=== PATIENT | female | born 1985 | race Caucasian/White ===

== ENCOUNTER 2018-12-17 14:31 | Emergency (ER) | payer SELFPAY ==
[~2018-12-17] VITALS: Ht 167.6 cm; Wt 52.2 kg
[~2018-12-17 14:31] MED LIST: LORA-476 PO
[2018-12-17 14:40] VITALS: BP 138/94
--- NOTE | 2018-12-17 14:43 | NUR ---
PT TRIAGED, SENT BACK TO LOBBY AWAITING BED
--- NOTE | 2018-12-17 15:23 | NUR ---
PATIENT AMBULATED TO ER CHAIR D
--- NOTE | 2018-12-17 15:31 | NUR ---
PT BIB AMBULANCE W/ C/O ANXIETY ATTACK AT 0700 TODAY. STATES SHE MAY BE SO NOT TAKING ANTI ANXIETY MEDS. LMP 2 MONTHS AGO HAS NOT TAKEN TEST. C/O NUMBNESS IN TOES STARTING TODAY. PT UNABLE TO SLEEP AT NIGHT R/T HEADACHE X2 WEEKS. PAIN 10/10 IN HEAD. PT SITTING IN CHAIR CALM. VSS. MEDHX: ANXIETY ALLERGIES: DENIES
--- NOTE | 2018-12-17 16:53 | NUR ---
PT NOT FOUND IN CHAIR, RESTROOMS OR ER LOBBY. PT LWBS AT THIS TIME
== END 2018-12-17 16:53 | disposition left against medical advice (07) ==
LOC: MED 14:31
DX: F41.9 Anxiety disorder, unspecified (principal); Z53.21 Procedure and treatment not carried out due to patient leaving prior to being seen by health care provider
CPT/HCPCS: 81025

== ENCOUNTER 2018-12-29 03:10 | Emergency (ER) | payer SELFPAY ==
[~2018-12-29] VITALS: Ht 165.1 cm; Wt 52.2 kg
--- NOTE | 2018-12-29 03:10 | NUR ---
PT SHELLEY BLS. TAKEN TO BED 8
--- NOTE | 2018-12-29 03:15 | NUR ---
33Y FEMALE BIBA FROM HOME FOR ANXIETY. PT STATES "IT FEELS LIKE MY HEART IS JUMPING OUT OF MY CHEST" C/O NAUSEA, CHEST PAIN 10/ AND SOB. ON PRESCRIBED ATIVAN BUT PT DOES NOT TAKE MED. PT ADMITS TO DRINKING A PINT OF VODKA, AAOX4, RR EVEN UNLABORED, GCS 15 EDMD MADE AWARE, WILL CONTINUE TO MONITOR CLOSELY, BED LOCKED IN LOWEST POSITION, SIDERAILS UPX2. PMH-- ANXIETY, HYPOGLYCEMIA, ALCOHOLISM
[2018-12-29 03:17] VITALS: BP 149/97
--- NOTE | 2018-12-29 03:27 | NUR ---
Dr. Walker examining patient.
[2018-12-29] MEDS ORDERED: KETOROLAC 30 MG/ML VIAL IVP ONE (03:35)
[2018-12-29] MEDS ORDERED: MULTIVITAMIN-12 10 ML, THIAMINE 100 MG, FOLIC ACID 1 MG, MAGNESIUM SULFATE 50% 2,000 MG... IV ONE ×5 (03:35)
[2018-12-29] MEDS ORDERED: LORazepam 2 MG/ML VIAL IVP ONE (03:35)
[2018-12-29] MEDS ORDERED: THIAMINE 200 MG/2 ML VIAL ONE (03:46)
[2018-12-29] MEDS ORDERED: FOLIC ACID 5 MG/ML SYR ONE (03:46)
[2018-12-29] MEDS ORDERED: MULTIVITAMIN-12 10 ML VIAL IV ONE (03:46)
[2018-12-29] MEDS ORDERED: MAG SULF 2000 MG/WATER PREMIX 50 ML IV ONE (03:54)
[2018-12-29 05:30] VITALS: BP 149/97
--- NOTE | 2018-12-29 05:30 | NUR ---
PT DISCHARGED WITH VSS, WRITTEN AND VERBAL AFTER CARE INSTRUCTIONS EXPLAINED AND PROVIDED FOR PT, VERBALIZED UNDERSTANDING, AMBULATORY WITH STEADY GAIT. ALL QUESTIONS ADDRESSED, ADVISED TO FOLLOW UP WITH PMD.
== END 2018-12-29 05:30 | disposition home or self-care (01) ==
LOC: MED 03:10
DX: F41.9 Anxiety disorder, unspecified (principal); R07.89 Other chest pain; F10.10 Alcohol abuse, uncomplicated; R03.0 Elevated blood-pressure reading, without diagnosis of hypertension
CPT/HCPCS: 84703; 93005; 96365; 96375; 99283; A9153; J1885; J2060; J3411; J3475; J3490

== ENCOUNTER 2019-02-13 12:31 | Emergency (ER) | payer MEDICAID ==
[~2019-02-13] VITALS: Ht 175.3 cm; Wt 49.4 kg
[2019-02-13 12:38] VITALS: BP 129/82
--- NOTE | 2019-02-13 12:44 | NUR ---
PT ABLE TO AMBULATE FROM STRETCHER TO CHAIR B, VS WNL
--- NOTE | 2019-02-13 12:50 | NUR ---
33 Y/O FEMAL BIBA C/O CONTINUOUS EPIGASTRIC PAIN 11/15 WIHT NAUSEA. PT ADMITS TO DRINKING HALF A PINT OF VODKA. PATIENT STATES, "I HAVEN'T BEEN ABLE TO EAT BECAUSE I HAVE BEEN THROWING UP; I''VE ONLY HAD A FEW BITES OF ADAME SOUP." ERMD MADE AWARE OF STATUS. SIDE RAILSX1. UNCLE AT BEDSIDE. WILL CONTINUE TO MONITOR. PMH- ALCOHOL ABUSE RX: NONE NKDA
--- NOTE | 2019-02-13 12:50 | NUR ---
Pt moved to bed 5.
[2019-02-13] MEDS ORDERED: LORazepam 2 MG/ML VIAL IVP ONE (14:20)
[2019-02-13] MEDS ORDERED: NACL 0.9% 1,000 ML IV ONE (14:20)
[2019-02-13 16:02] VITALS: BP 120/82
--- NOTE | 2019-02-13 16:02 | NUR ---
Patient discharged with v/s stable. Written and verbal after care instructions given and explained. Patient alert, oriented and verbalized understanding of instructions. Ambulatory with steady gait. All questions addressed prior to discharge. ID band removed. Patient advised to follow up with PMD and pt states she does not have one. Pt unsure if she has insurance. Verified with [facility] and pt is self pay. Pt sent to ER lobby to speak with clerk telegraph service about qualifying for PE. Rx of Ativan 1mg given. Patient educated on indication of medication including possible reaction and side effects. Opportunity to ask questions provided and answered.
== END 2019-02-13 16:02 | disposition home or self-care (01) ==
LOC: MED 12:31
DX: F41.9 Anxiety disorder, unspecified (principal); F10.10 Alcohol abuse, uncomplicated; R11.10 Vomiting, unspecified; Z79.899 Other long term (current) drug therapy; Z86.39 Personal history of other endocrine, nutritional and metabolic disease; Z87.448 Personal history of other diseases of urinary system
CPT/HCPCS: 96361; 96374; 99284; J2060; J7030

== ENCOUNTER 2019-03-07 08:20 | Emergency (ER) | payer MEDICAID ==
[~2019-03-07] VITALS: Ht 167.6 cm; Wt 52.2 kg
[2019-03-07 08:23] VITALS: BP 136/101
--- NOTE | 2019-03-07 08:27 | NUR ---
PT AMBULATED TO ER BED 04
--- NOTE | 2019-03-07 08:29 | NUR ---
PATIENT PRESENTS TO ED WITH C/O ANXIETY X 2 WEEKS. STATED CHEST PAIN TODAY, ADMITS TO DAILY ETOH USE. + NAUSEA/BLOATING. LUNGS CLEAR BL; HR EVEN AND REGULAR; PATIENT STATES CHEST PAIN OF 9/10 AT THIS TIME; VSS; PATIENT POSITIONED FOR COMFORT; HOB ELEVATED; BEDRAILS UP X2; BED DOWN. ER MD MADE AWARE OF PT STATUS.
--- NOTE | 2019-03-07 08:30 | NUR ---
Patient being evaluated by DR. FOLEY at bedside.
[2019-03-07] MEDS ORDERED: LORazepam 2 MG/ML VIAL IM ONE (08:35)
--- NOTE | 2019-03-07 09:30 | NUR ---
PATIENT STATED FEELING BETTER AFTER MEDICATED, BUT STILL HAVE CHEST DISCOMFORT AND ABDOMINAL PAIN, DR. FOLEY MADE AWARE.
--- NOTE | 2019-03-07 09:45 | NUR ---
DR. FOLEY EDUCATED PATIENT ABOUT ALCOHOLISM SYMPTOM RALATED TO CHEST DISCOMFORT AND ABDOMINAL PAIN, AND ALCOHOL DETOX PROGRAM. PATIENT VERBALIZED UNDERSTANDING IT.
[2019-03-07 10:03] VITALS: BP 122/87
--- NOTE | 2019-03-07 10:03 | NUR ---
Patient'S V/S STABLE, DENIES PAIN, Written and verbal after care instructions given and explained BY DR. FOLEY. Rx of LIBRIUM given. Patient educated on indication of medication including possible reaction and side effects. Opportunity to ask questions provided and answered BY DR. FOLEY. ID band removed. Patient advised to follow up with PMD.
== END 2019-03-07 10:03 | disposition home or self-care (01) ==
LOC: MED 08:20
DX: F10.239 Alcohol dependence with withdrawal, unspecified (principal); Y90.9 Presence of alcohol in blood, level not specified; E07.9 Disorder of thyroid, unspecified; F41.9 Anxiety disorder, unspecified; Z79.899 Other long term (current) drug therapy; Z87.448 Personal history of other diseases of urinary system
CPT/HCPCS: 96372; 99283; J2060; 99284

== ENCOUNTER 2019-06-15 15:56 | Emergency (ER) | payer SELFPAY ==
[~2019-06-15] VITALS: Ht 162.6 cm; Wt 50.0 kg
--- NOTE | 2019-06-15 15:56 | NUR ---
PT SHELLEY MCCRACKEN TO THE LOBBY
[2019-06-15 16:06] VITALS: BP 103/74
--- NOTE | 2019-06-15 17:11 | NUR ---
called PT name in lobby and parking lot, no response
--- NOTE | 2019-06-15 17:21 | NUR ---
Called PT name in lobby, no answer
--- NOTE | 2019-06-15 17:34 | NUR ---
PATIENT LEFT WITHOUT BEING SEEN BY DR. Taveras. NO FURTHER CARE PROVIDED FOR PATIENT.
== END 2019-06-15 17:34 | disposition left against medical advice (07) ==
LOC: MED 15:56
DX: F41.9 Anxiety disorder, unspecified (principal); Z53.21 Procedure and treatment not carried out due to patient leaving prior to being seen by health care provider

== ENCOUNTER 2019-06-17 22:50 | Emergency (ER) | payer SELFPAY ==
[~2019-06-17] VITALS: Ht 294.6 cm; Wt 49.9 kg
[2019-06-17 22:59] VITALS: BP 118/74
[2019-06-18] MEDS ORDERED: LORazepam 1 MG TAB PO ONE (00:30)
[2019-06-18 01:38] VITALS: BP 119/79
== END 2019-06-18 01:38 | disposition home or self-care (01) ==
LOC: MED 22:50
DX: F41.9 Anxiety disorder, unspecified (principal); E16.2 Hypoglycemia, unspecified; E07.9 Disorder of thyroid, unspecified; Z79.899 Other long term (current) drug therapy; Z87.448 Personal history of other diseases of urinary system
CPT/HCPCS: 71045; 82948; 93005; 99283; Q0092; 99284

== ENCOUNTER 2019-08-12 00:50 | Emergency (ER) | payer SELFPAY ==
[~2019-08-12] VITALS: Ht 167.6 cm; Wt 51.7 kg
--- NOTE | 2019-08-12 00:50 | NUR ---
PT TRANSPORTED TO BED 7 VIA [facility].
[2019-08-12 00:55] VITALS: BP 143/81
--- NOTE | 2019-08-12 01:01 | NUR ---
AT BEDSIDE EXAMINING PT
--- NOTE | 2019-08-12 01:10 | NUR ---
34 YEAR OLD FEMALE BIBA FOR LEFT EYE PAIN. PATIENT STATES THAT SHE FELL OFF OF BED 2 DAYS AGO ON SAME SPOT (LEFT EYE AREA) THAT SHE HAD FELL ONTO PREVIOUSLY A COUPLE OF WEEKS AGO. PATIENT WITH LEFT EYELID SWOLLEN, PURPLE, AND WITH DIFFICULTY OPENING EYE. PATIENT DENIES ABUSE. PATIENT AOX4, BREATHING EVEN AND UNLABORED, SKIN WARM AND DRY. BED IN LOWEST POSITION, LOCKED, BED RAIL UPX1. ERMD AT BEDSIDE OF PATIENT. PMH - DENIES ALLERGIES - NKA
--- NOTE | 2019-08-12 01:44 | NUR ---
PATIENT BACK FROM CT
--- NOTE | 2019-08-12 01:44 | NUR ---
PATIENT ALERT AND AWAKE, BREATHING EVEN AND UNLABORED
[2019-08-12 02:42] VITALS: BP 114/84
--- NOTE | 2019-08-12 02:42 | NUR ---
Patient discharged with v/s stable. Written and verbal after care instructions about facial or scalp contusions given and explained. Patient alert, oriented and verbalized understanding of instructions. Ambulatory with steady gait. All questions addressed prior to discharge. ID band removed. Patient advised to follow up with PMD. Rx of ativan given. Patient educated on indication of medication including possible reaction and side effects. Opportunity to ask questions provided and answered.
== END 2019-08-12 02:42 | disposition home or self-care (01) ==
LOC: MED 00:50
DX: S00.83XA Contusion of other part of head, initial encounter (principal); H02.846 Edema of left eye, unspecified eyelid; F41.9 Anxiety disorder, unspecified; E07.9 Disorder of thyroid, unspecified; Z79.899 Other long term (current) drug therapy; W06.XXXA Fall from bed, initial encounter; Y93.89 Activity, other specified; Y92.89 Other specified places as the place of occurrence of the external cause; Y99.8 Other external cause status
CPT/HCPCS: 70450; 99284

== ENCOUNTER 2019-08-13 20:43 | Emergency (ER) | payer SELFPAY ==
[~2019-08-13] VITALS: Ht 170.2 cm; Wt 54.4 kg
--- NOTE | 2019-08-13 20:43 | NUR ---
PT SHELLEY MCCRACKEN. TAKEN TO BED 12
[2019-08-13 20:45] VITALS: BP 111/77
--- NOTE | 2019-08-13 20:45 | NUR ---
PT NEGATIVE FOR COVID SCREEN PT WEARING MASK. TRIAGE NURSE WEARING PPE.
--- NOTE | 2019-08-13 21:20 | NUR ---
PT MEDICATED WITH TORADOL IVP AND INFUSING NS BOLUS. TOLERATED WELL.
--- NOTE | 2019-08-13 21:26 | NUR ---
PT AMBULATED TO RESTROOM WITH STEADY GAIT.
[2019-08-13] MEDS: NACL 0.9% 1,000 ML IV ONE (21:32)
[2019-08-13] MEDS: KETOROLAC 30 MG/ML VIAL IVP ONE (21:33)
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
--- NOTE | 2019-08-13 21:38 | NUR ---
34F PT STATES SHE FELL FROM BED X 2 DAYS AGO AND HIT HEAD. PT STATES SINCE THEN SHE HAS HAD A VALDEZ WITH 10/10 PAIN. PT STATES PAIN RADIATES TO NECK. PT STATES SHE DRANK 1/2 PINT OF VODKA TODAY AND HAS BEEN FEELING DIZZY. PT NOTED WITH BRUISED L EYE. RX: NAPROSYN PMHX: DENIES NEGATIVE COVID SCREEN.
[2019-08-13 21:40] LABS: BASOPHILS # (AUTO) 0.1 K/uL (0.00-0.22); BASOPHILS % (AUTO) 0.9 % (0.0-2.0); EOSINOPHILS % (AUTO) 0.4 % (0.0-4.0); HEMATOCRIT 33.7 % (36-48); HEMOGLOBIN 11.4 g/dL (12.0-16.0); LYMPHOCYTES % (AUTO) 25.9 % (20.5-51.1); MEAN CORPUSCULAR HEMOGLOBIN 31 pg (27-31); MEAN CORPUSCULAR HGB CONC 34 g/dL (33-37); MEAN CORPUSCULAR VOLUME 92.5 fL (80-94); MONOCYTES # (AUTO) 0.6 K/uL (0.8-1.0); MONOCYTES % (AUTO) 7.4 % (1.7-9.3); NEUTROPHILS % (AUTO) 65.4 % (42.2-75.2); PLATELET COUNT (AUTO) 108 K/uL (140-450); RED BLOOD CELL COUNT(AUTO) 3.64 MIL/uL (4.20-5.40); RED CELL DISTRIBUTION WIDTH 13.2 % (11.6-13.7); WHITE BLOOD COUNT (AUTO) 7.6 K/uL (4.8-10.8)
[2019-08-13 21:56] LABS: BARBITURATE, URINE NEGATIVE ng/ml (NEG <=200); BENZODIAZEPINE, URINE POSITIVE ng/mL (NEG <=200); CANNABINOID, URINE NEGATIVE ng/mL (NEG <=50); COCAINE, URINE NEGATIVE ng/mL (NEG <=300); OPIATE, URINE NEGATIVE ng/mL (NEG <=2000); PHENCYCLIDINE SCREEN,URINE NEGATIVE ng/mL (NEG <=25)
[2019-08-13 22:26] LABS: ALBUMIN 4.2 g/dL (3.4-5.0); ANION GAP 18.8 (8-16); ASPARTATE AMINOTRANSFERASE 113 U/L (15-37); CARBON DIOXIDE 26.6 mmol/L (21-32); CHLORIDE 99 mmol/L (98-107); CREATININE 0.7 mg/dL (0.6-1.3); GFR ARICAN-AMERICAN 122 mL/min (>90); GLUCOSE 106 mg/dL (74-106); POTASSIUM 3.4 mmol/L (3.5-5.1); SODIUM SERUM 141 mmol/L (136-145); TOTAL BILIRUBIN 0.8 mg/dL (0.0-1.0); UREA NITROGEN, BLOOD 12 mg/dL (7-18)
[2019-08-13 22:30] LABS: ACETAMINOPHEN < 0.5 ug/ml (10-30); SALICYLATE < 2.8 mg/dL (2.8-20.0)
--- NOTE | 2019-08-13 22:59 | NUR ---
PT REPORTS DECREASED PAIN FROM 7/10 TO 3/10 AND TOLERABLE. NO FURTHER NEEDS AT THIS TIME. BED LOWEST AND LOCKED, RAILS X2. IV SITE PATENT
--- NOTE | 2019-08-14 00:34 | NUR ---
PT REPORTS OF INCREASING PAIN ON LEFT PERIORBITAL REGION. DR. MCKENZIE NOTIFIED.
[2019-08-14 01:28] VITALS: BP 115/78
--- NOTE | 2019-08-14 01:28 | NUR ---
Patient discharged with v/s stable. Written and verbal after care instructions given and explained. Patient verbalized understanding. Ambulatory with steady gait. All questions addressed prior to discharge. Advised to follow up with PMD.
== END 2019-08-14 01:28 | disposition home or self-care (01) ==
LOC: MED 20:43
DX: R51 Headache (principal); F10.120 Alcohol abuse with intoxication, uncomplicated; E07.9 Disorder of thyroid, unspecified; Z87.448 Personal history of other diseases of urinary system; Z79.899 Other long term (current) drug therapy; W06.XXXA Fall from bed, initial encounter; Y93.89 Activity, other specified; Y92.89 Other specified places as the place of occurrence of the external cause; Y99.8 Other external cause status; Y90.9 Presence of alcohol in blood, level not specified
CPT/HCPCS: 36415; 80053; 80305; 84703; 85025; 96361; 96374; 99284; G0480; G0482; J1885; J7030

== ENCOUNTER 2019-09-06 18:58 | Emergency (ER) | payer SELFPAY ==
[~2019-09-06] VITALS: Ht 167.6 cm; Wt 54.4 kg
[2019-09-06 18:59] VITALS: BP 120/80
--- NOTE | 2019-09-06 19:03 | NUR ---
KAROLINA ROSA ALS TO ER BED 07
--- NOTE | 2019-09-06 19:12 | NUR ---
Dr. Chan examining patient.
[2019-09-06] MEDS ORDERED: diphenhydrAMINE 50 MG/ML VIAL IVP ONE (19:15)
[2019-09-06] MEDS ORDERED: MULTIVITAMIN-12 10 ML, THIAMINE 100 MG, MAGNESIUM SULFATE 50% 2,000 MG, FOLIC ACID 1 MG... IV ONE ×5 (19:15)
--- NOTE | 2019-09-06 19:16 | NUR ---
34 Y/O FEMALE PRESENTS TO ER WITH C/O GENERALIZED WEAKNESS, AND LEFT LEG PAIN 10/. "I WAS LOOKING FOR MY PHONE, AND MY LEG GOT STUCK IN BETWEEN THE BED" DENIES NAUSEA, VOMITING, DIARRHEA, COUGH. NO DEFORMITY, REDNESS, INFLAMMATION, OR DISCOLORATION NOTED IN LEFT LEG. BILATERAL LOWER EXTREMITY PULSES PALPATED. STRONG, AND REGULAR. SIDE RAIL X1, BED IN LOW POSITION, WILL CONTINUE TO MONITOR. NKDA PMH: ANXIETY, ALCOHOL ABUSE, HYPOGLYCEMIA
--- NOTE | 2019-09-06 19:31 | NUR ---
LABS DRAWN AND SENT TO LAB.
[2019-09-06] MEDS ORDERED: MULTIVITAMIN-12 10 ML VIAL IV ONE (19:32)
[2019-09-06 19:34] LABS: BASOPHILS # (AUTO) 0.1 K/uL (0.00-0.22); BASOPHILS % (AUTO) 1.7 % (0.0-2.0); EOSINOPHILS % (AUTO) 0.2 % (0.0-4.0); HEMATOCRIT 32.9 % (36-48); HEMOGLOBIN 10.9 g/dL (12.0-16.0); LYMPHOCYTES # (AUTO) 1.5 K/uL (2.5-16.5); LYMPHOCYTES % (AUTO) 26.9 % (20.5-51.1); MEAN CORPUSCULAR HEMOGLOBIN 31 pg (27-31); MEAN CORPUSCULAR HGB CONC 33 g/dL (33-37); MEAN CORPUSCULAR VOLUME 92.4 fL (80-94); MONOCYTES # (AUTO) 0.5 K/uL (0.8-1.0); MONOCYTES % (AUTO) 8.3 % (1.7-9.3); NEUTROPHILS # (AUTO) 3.4 K/uL (1.8-7.7); NEUTROPHILS % (AUTO) 62.9 % (42.2-75.2); PLATELET COUNT (AUTO) 75 K/uL (140-450); RED BLOOD CELL COUNT(AUTO) 3.56 MIL/uL (4.20-5.40); RED CELL DISTRIBUTION WIDTH 14.5 % (11.6-13.7); WHITE BLOOD COUNT (AUTO) 5.5 K/uL (4.8-10.8)
[2019-09-06] MEDS ORDERED: MAG SULF 2000 MG/WATER PREMIX 50 ML IV ONE (19:38)
[2019-09-06] MEDS ORDERED: THIAMINE 200 MG/2 ML VIAL ONE (19:38)
[2019-09-06] MEDS ORDERED: FOLIC ACID 5 MG/ML SYR ONE ×2 (19:39→19:44)
[2019-09-06 19:48] LABS: ANION GAP 20.8 (8-16); CREATININE 0.7 mg/dL (0.6-1.3); POTASSIUM 3.8 mmol/L (3.5-5.1)
[2019-09-06 19:54] LABS: ALBUMIN 3.5 g/dL (3.4-5.0); TOTAL BILIRUBIN 0.9 mg/dL (0.0-1.0)
--- NOTE | 2019-09-06 20:31 | NUR ---
PT RESTING IN BED QUIETLY, EATING SANDWHICH AND APPLE JUICE. VSS, R/R EQUAL AND UNLABORED.
--- NOTE | 2019-09-06 21:34 | NUR ---
PT SLEEPING IN BED. VSS, R/R EQUAL AND UNLABORED.
--- NOTE | 2019-09-06 22:41 | NUR ---
PT SLEEPING, IN BED. VSS, R/R EQUAL AND UNLABORED.
--- NOTE | 2019-09-06 23:45 | NUR ---
Patient discharged with v/s stable. Written and verbal after care instructions given and explained. Patient alert, oriented and verbalized understanding of instructions. Ambulatory with steady gait. All questions addressed prior to discharge. ID band removed. Patient advised to follow up with PMD. Rx of LIBRIUM given. Patient educated on indication of medication including possible reaction and side effects. Opportunity to ask questions provided and answered.
--- NOTE | 2019-09-06 23:45 | NUR ---
PT D/C'D AND PICKED UP BY SHAHRZADFRIENJason LEW
[2019-09-06 23:48] VITALS: BP 120/80
== END 2019-09-06 23:45 | disposition home or self-care (01) ==
LOC: MED 18:58
DX: F10.10 Alcohol abuse, uncomplicated (principal); F41.9 Anxiety disorder, unspecified; E07.9 Disorder of thyroid, unspecified; Z79.899 Other long term (current) drug therapy; Y90.8 Blood alcohol level of 240 mg/100 ml or more
CPT/HCPCS: 36415; 80053; 85025; 96365; 96366; 96375; 99284; A9153; G0482; J1200; J3411; J3475; J3490

== ENCOUNTER 2019-10-09 08:42 | Inpatient (IN) | payer MEDICAID ==
[~2019-10-09] VITALS: Ht 154.9 cm; Wt 63.0 kg
--- NOTE | 2019-10-09 08:44 | NUR ---
BIBA TAKEN TO BED 7
[2019-10-09 08:47] VITALS: BP 113/81
--- NOTE | 2019-10-09 08:47 | NUR ---
34 Y/O F C/C DIZZINESS X 1 MONTH, BIBA FROM HOME. PER PT ON AND OFF, HAS BEEN PROGRESSIVELY GETTING WORSE. PER PT COMPLAINTS OF CHEST DISCOMFORT, SOB, AND FAINTING EVERY TIME SHE STANDS UP. PER EMS PT ORTHOSTATIC BLOOD PRESSURE WHEN STANDING UP. PT PRESENTS IN NO RESPIRATORY DISTRESS, EUPNIC, VSS. PT NKA. HX ANXIETY. RX ATIVAN. NO NVD. SIDE RAIL X1.
[2019-10-09] MEDS ORDERED: NACL 0.9% 1,000 ML IV ONE (09:50)
[2019-10-09] MEDS ORDERED: LORazepam 0.5 MG TAB PO ONE (09:50)
--- NOTE | 2019-10-09 10:04 | NUR ---
RAD AT BEDSIDE
[2019-10-09 10:11] LABS: MEAN CORPUSCULAR HEMOGLOBIN 32 pg (27-31); MEAN CORPUSCULAR HGB CONC 33 g/dL (33-37); MEAN CORPUSCULAR VOLUME 94.2 fL (80-94); PLATELET COUNT (AUTO) 199 K/uL (140-450); RED BLOOD CELL COUNT(AUTO) 2.87 MIL/uL (4.20-5.40); RED CELL DISTRIBUTION WIDTH 17.1 % (11.6-13.7); WHITE BLOOD COUNT (AUTO) 7.2 K/uL (4.8-10.8)
[2019-10-09] MEDS ORDERED: MAG SULF 2000 MG/WATER PREMIX 50 ML IV ONE (10:35)
[2019-10-09 10:38] LABS: ALBUMIN 2.7 g/dL (3.4-5.0); ANION GAP 17.4 (8-16); CARBON DIOXIDE 25.9 mmol/L (21-32); CREATININE 0.4 mg/dL (0.6-1.3); FREE T4 (FREE THYROXINE) 1.17 ng/dL (0.76-1.46); MAGNESIUM 1.4 mg/dL (1.8-2.4); POTASSIUM 3.3 mmol/L (3.5-5.1); THYROID STIMULATING HORMONE 2.32 uIU/mL (0.34-3.74); TOTAL BILIRUBIN 0.7 mg/dL (0.0-1.0)
[2019-10-09 10:59] LABS: EOSINOPHILS % (MANUAL) 1 % (0-4); LYMPHOCYTES % (MANUAL) 16 % (20-46); MONOCYTES % (MANUAL) 18 % (5-12)
[2019-10-09] MEDS ORDERED: NACL 0.9% 1,000 ML IV SCH (11:34)
[2019-10-09] MEDS ORDERED: ONDANSETRON 4 MG/2 ML VIAL IVP PRN (11:35)
[2019-10-09 12:13] LABS: PROTHROMBIN TIME 11.8 secs (10.8-13.4)
[2019-10-09 12:30] VITALS: BP 114/80
--- NOTE | 2019-10-09 12:30 | NUR ---
RECEIVED BEDSIDE REPORT FROM ER NURSEERIK, FOR CONTINUITY OF CARE. AAOX4, PATIENT SEEMS AGITATED AND IN DISTRESS. V/S TAKEN AND IS WNL. PATIENT COMPLAINS OF ABDOMINAL PAIN 10/15. WILL MEDICATE. PATIENT ON ROOM AIR WITH SAO2 AT 94%, RESPIRATIONS EVEN AND UNLABORED. IV SITE ON THE LEFT WRIST 20G, PATENT AND INFUSES WELL. SAFETY PRECAUTIONS IN PLACE. CALL LIGHT WITHIN REACH. PLAN OF CARE DISCUSSED AND PATIENT VERBALIZES UNDERSTANDING. WILL CONTINUE TO MONITOR.
--- NOTE | 2019-10-09 12:51 | NUR ---
Patient will be admitted to care of [facility]. Admited to TELE. Will go to room 111B. Belongings list completed. Report to GIANLUCA KOO.
[2019-10-09 12:53] LABS: PHOSPHORUS 3.9 mg/dL (2.5-4.9)
[2019-10-09] MEDS ORDERED: MAG SULF 2000 MG/WATER PREMIX 50 ML IV SCH (14:00)
[2019-10-09] MEDS ORDERED: DEXT 5% /NACL 0.9% 1,000 ML IV SCH ×2 (14:30→15:00)
[2019-10-09] MEDS ORDERED: MULTIVITAMIN-12 10 ML, THIAMINE 100 MG, MAGNESIUM SULFATE 50% 2,000 MG, FOLIC ACID 1 MG... IV SCH ×5 (15:00)
--- NOTE | 2019-10-09 15:10 | NUR ---
TORADOL IVP GIVEN FOR ABDOMINAL PAIN OF 10/15. NO SIGNS OF DISTRESS NOTED. WILL CONTINUE TO MONITOR.
[2019-10-09] MEDS: KETOROLAC 30 MG/ML VIAL IVP PRN (15:12)
[2019-10-09 16:00] VITALS: BP 122/88
[2019-10-09] MEDS: chlordiazePOXIDE 25 MG CAP PO SCH (17:07)
--- NOTE | 2019-10-09 17:10 | NUR ---
AFTERNOON MEDICATIONS GIVEN. PATIENT COMPLAINS OF ANXIETY AND AGITATION. WILL MEDICATE WITH ATIVAN. V/S TAKEN AND IS WNL. WILL CONTINUE TO MONITOR.
[2019-10-09] MEDS: LORazepam 2 MG/ML VIAL IVP PRN ×2 (18:10→20:44)
[2019-10-09 19:10] LABS: BARBITURATE, URINE NEGATIVE ng/ml (NEG <=200); BENZODIAZEPINE, URINE POSITIVE ng/mL (NEG <=200); CANNABINOID, URINE NEGATIVE ng/mL (NEG <=50); COCAINE, URINE NEGATIVE ng/mL (NEG <=300); OPIATE, URINE NEGATIVE ng/mL (NEG <=2000); PHENCYCLIDINE SCREEN,URINE NEGATIVE ng/mL (NEG <=25)
--- NOTE | 2019-10-09 19:30 | NUR ---
ENDORSED TO RE EXAMINER NURSEBENJAMÍN, FOR CONTINUITY OF CARE.
--- NOTE | 2019-10-09 19:45 | NUR ---
A/A/O X4.DENIES ANY DISCOMFORT @ THIS TIME.DENIES SOB.DENIES CP.NOTED TREMORS ON BOTH HANDS.IVF NS WITH ADDITIVES @ 125 ML/HR INFUSING WELL ON HER LEFT WRIST.INSTRUCTED TO USE CALL LIGHT NEEDED;WITHIN REACH. INSTRUCTED NPO EXCEPT MEDS.VERBALIZED UNDERSTANDING OF THE INSTRUCTION GIVEN.DINNER TRAY REMOVED & PITCHER EMPTIED.
[2019-10-09 20:00] VITALS: BP 129/91
--- NOTE | 2019-10-09 20:00 | NUR ---
AFEBRILE. BP 129/[address]TELE SHOWED ST.
[2019-10-09] MEDS: DOCUSATE SODIUM 100 MG GELCAP PO SCH (20:45)
[2019-10-09] MEDS: ACETAMINOPHEN 325 MG TAB PO PRN (20:45)
--- NOTE | 2019-10-09 20:45 | NUR ---
ATIVAN IV ADM.C/O ACHING EPIGASTRIC PAIN.SCALE 10/10.NO FACIAL GRIMACING NOTED.TYLENOL PO ADM.
--- NOTE | 2019-10-09 21:45 | NUR ---
PER PT PAIN STILL PERSIST BUT DECREASED TO SCALE 3/10.
--- NOTE | 2019-10-09 22:00 | NUR ---
RESTING COMFORTABLY IN NO ACUTE DISTRESS.
[2019-10-10] VITALS: BP 126/88
--- NOTE | 2019-10-10 | NUR ---
AFEBRILE.V/S STABLE.TELE SHOWED SR.
[2019-10-10] MEDS: KETOROLAC 30 MG/ML VIAL IVP PRN (01:43)
[2019-10-10] MEDS: LORazepam 2 MG/ML VIAL IVP PRN (02:07)
[2019-10-10 02:08] VITALS: BP 129/91
[2019-10-10] MEDS: DEXT 5% /NACL 0.9% 1,000 ML IV SCH ×4 (02:14→21:00)
[2019-10-10 04:00] VITALS: BP 129/87
--- NOTE | 2019-10-10 04:00 | NUR ---
AFEBRILE.BP 129/87 MM HG.TELE SHOWED SR.VOIDING FREELY THRU THE BEDPAN.
[2019-10-10] MEDS ORDERED: LORazepam 2 MG/ML VIAL IVP ONE ×2 (05:20→22:55)
--- NOTE | 2019-10-10 05:25 | NUR ---
UNABLE TO PERFORM EKG AT THIS TIME IS AWARE
--- NOTE | 2019-10-10 06:45 | NUR ---
TO CT OF THE HEAD VIA W/C IN STABLE CONDITION.
--- NOTE | 2019-10-10 06:55 | NUR ---
BACK FR RADIOLOGY VIA W/C IN STABLE CONDITION. ENDORSED IVF INFUSING WELL.SAFETY MAINTAINED.
--- NOTE | 2019-10-10 07:18 | NUR ---
PATIENT HAS BEEN SCREENED AND CATEGORIZED LOW NUTRITION RISK. PATIENT WILL BE SEEN WITHIN 7 DAYS OF ADMISSION. 10/16/19 NILS ABDI MS, RDN
--- NOTE | 2019-10-10 07:19 | NUR ---
RECEIVED REPORT FROM B2B SALES EXECUTIVE NURSE BENJAMÍN-HANANE. PT RESTING IN BED, AOX2-CONFUSED, NO IV SITE ON ROOM AIR. DISCUSSED PLAN OF CARE HOWEVER PT IS CONFUSED ASKING ME TO GIVE HER THAT "H" MEDICATION. WHEN ASKED WHAT SHE IS REFERRING TO SHE STATED "HEROIN." CALL LIGHT WITHIN REACH. NO S/S OF RESPIRATORY DISTRESS OR DISCOMFORT NOTED AT THIS TIME. WILL CONTINUE TO MONITOR.
[2019-10-10 08:00] VITALS: BP 113/81
[2019-10-10 08:20] LABS: HEMATOCRIT 27.7 % (36-48); HEMOGLOBIN 9.1 g/dL (12.0-16.0); MEAN CORPUSCULAR HEMOGLOBIN 32 pg (27-31); MEAN CORPUSCULAR HGB CONC 33 g/dL (33-37); MEAN CORPUSCULAR VOLUME 96.3 fL (80-94); PLATELET COUNT (AUTO) 169 K/uL (140-450); RED BLOOD CELL COUNT(AUTO) 2.88 MIL/uL (4.20-5.40); RED CELL DISTRIBUTION WIDTH 16.7 % (11.6-13.7); WHITE BLOOD COUNT (AUTO) 7.6 K/uL (4.8-10.8)
[2019-10-10] MEDS: FOLIC ACID 1 MG TAB PO SCH (08:26)
[2019-10-10] MEDS: DOCUSATE SODIUM 100 MG GELCAP PO SCH ×2 (08:26→21:40)
[2019-10-10] MEDS: MULTIVITAMIN 1 TAB PO SCH (08:26)
[2019-10-10] MEDS: chlordiazePOXIDE 25 MG CAP PO SCH ×3 (08:27→18:16)
[2019-10-10] MEDS: THIAMINE 100 MG TAB PO SCH (08:27)
--- NOTE | 2019-10-10 08:27 | NUR ---
SCHEDULED MEDICATIONS GIVEN AND TOLERATED WELL. CALL LIGHT WITHIN REACH. NO S/S OF RESPIRATORY DISTRESS OR DISCOMFORT NOTED AT THIS TIME. WILL CONTINUE TO MONITOR.
[2019-10-10 08:39] LABS: ANION GAP 16.9 (8-16); CARBON DIOXIDE 24.8 mmol/L (21-32); CREATININE 0.6 mg/dL (0.6-1.3); POTASSIUM 3.7 mmol/L (3.5-5.1)
[2019-10-10 08:40] LABS: CHOL/HDL RATIO 7.5 (1-4.5); MAGNESIUM 1.9 mg/dL (1.8-2.4); PHOSPHORUS 2.2 mg/dL (2.5-4.9)
[2019-10-10 09:10] LABS: LYMPHOCYTES % (MANUAL) 10 % (20-46); MONOCYTES % (MANUAL) 12 % (5-12)
--- NOTE | 2019-10-10 10:00 | NUR ---
PT CONFUSED FOUND WANDERING AROUND UNIT LOOKING FOR HER SISTER. REORIENTED PT TO HOSPITAL SETTING. CALL LIGHT WITHIN REACH. NO S/S OF RESPIRATORY DISTRESS OR DISCOMFORT NOTED AT THIS TIME. WILL CONTINUE TO MONITOR.
--- NOTE | 2019-10-10 12:00 | NUR ---
PT CONTINUES TO WALK AROUND UNIT LOOKING FOR HER SHIRT. REORIENTED PT TO HOSPITAL SETTING. CALL LIGHT WITHIN REACH. NO S/S OF RESPIRATORY DISTRESS OR DISCOMFORT NOTED AT THIS TIME. WILL CONTINUE TO MONITOR.
--- NOTE | 2019-10-10 13:41 | NUR ---
SCHEDULED MEDICATION LIBRIUM GIVEN AND TOLERATED WELL. CALL LIGHT WITHIN REACH. NO S/S OF RESPIRATORY DISTRESS OR DISCOMFORT NOTED AT THIS TIME. WILL CONTINUE TO MONITOR.
--- NOTE | 2019-10-10 15:00 | NUR ---
PT CONTINUES TO WANDER UNIT NOW LOOKING FOR HER BOYFRIEND. REORIENTED PT TO UNIT. CALL LIGHT WITHIN REACH. NO S/S OF RESPIRATORY DISTRESS OR DISCOMFORT NOTED AT THIS TIME. WILL CONTINUE TO MONITOR.
--- NOTE | 2019-10-10 15:32 | NUR ---
NEW IV SITE LEFT FA #[id number].
[2019-10-10 16:00] VITALS: BP 116/82
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
--- NOTE | 2019-10-10 18:16 | NUR ---
SCHEDULED MEDICATIONS GIVEN AND TOLERATED WELL. CALL LIGHT WITHIN REACH. NO S/S OF RESPIRATORY DISTRESS OR DISCOMFORT NOTED AT THIS TIME. WILL CONTINUE TO MONITOR. Addendum: 10/10/19 at 1911 by Silvia Canales RN NEW IV SITE ON LEFT FA #[id number].
[2019-10-10] MEDS: LORazepam 2 MG/ML VIAL IM/IVP PRN ×3 (18:41→22:58)
--- NOTE | 2019-10-10 18:41 | NUR ---
PT STATING ANXIETY AND ATIVAN GIVEN AND TOLERATED WELL. CALL LIGHT WITHIN REACH. NO S/S OF RESPIRATORY DISTRESS OR DISCOMFORT NOTED AT THIS TIME. WILL CONTINUE TO MONITOR. Addendum: 10/10/19 at 1912 by Silvia Canales RN URINE COLLECTED.
--- NOTE | 2019-10-10 19:24 | NUR ---
REPORT GIVEN TO ENVIRONMENTAL SYSTEMS COORDINATOR NURSE ANIKET- RN FOR CONTINUITY OF CARE. PT STABLE AT THIS TIME.
--- NOTE | 2019-10-10 19:25 | NUR ---
RECEIVED PT IN STABLE CONDITION FROM AM NURSE. PT ON TELE MONITOR. BEDREST. STILL WITH CONFUSION. HAS MINDI WRIST RESTRAINT . SIDE RAILS UP X2, FREQ ROUNDS NEEDED. CALL LIGHT PLACED WITHIN REACH. IVF IFNUSING WELL ON THE LT FA G#[phone] . CLEAR AND PATENT.
[2019-10-10] MEDS ORDERED: ATORVASTATIN 20 MG TAB PO SCH (19:30)
[2019-10-10 19:50] VITALS: BP 115/88
--- NOTE | 2019-10-10 19:55 | NUR ---
PT VERY AGITATED AND CONFUSED. ABLE TO REMOVE MINDI WRIST RESTRAINT AND WALKED OUT OF THE ROOM. ABLE TO GET BACK IN ROOM WITH SECURITY IN ATTENDANCE. IN BED BUT STILL VERY AGITATED. ATIVAN 2 MG IVP GIVEN.
[2019-10-10] MEDS ORDERED: NACL 0.9% 1,000 ML IV ONE (22:55)
--- NOTE | 2019-10-10 22:58 | NUR ---
PT STILL VERY AGITATED. DR. LUGO CAME IN AND SHE SAID TO GIVE ANOTHER DOSE OF ATIVAN IVP. WILL CONTINUE TO MONITOR.
[2019-10-10 23:00] LABS: APPEARANCE,URINE CLEAR (CLEAR); BILIRUBIN,URINE 1+ (NEGATIVE); BLOOD, URINE NEGATIVE (NEGATIVE); COLOR,URINE DARK YELLOW (YELLOW); LEUKOCYTE ESTERASE ,URINE NEGATIVE (NEGATIVE); NITRITE, URINE NEGATIVE (NEGATIVE); PH,URINE 8.5 (5.0-9.0); UGLUCOSE NEGATIVE (NEGATIVE)
[2019-10-10 23:16] LABS: RBC,URINE 0-5 /HPF (0-5); WBC,URINE 0-5 /HPF (0-5)
[2019-10-10 23:18] LABS: HYALINE CASTS, URINE 0-10 /LPF (None Seen)
--- NOTE | 2019-10-10 23:51 | NUR ---
PT STARTED GETTING SOME SLEEP. WILL ABLE TO PUT BACK TELE MONITOR-118 ST WILL CONTINUE TO MONITOR.
[2019-10-11] VITALS: BP 119/79
--- NOTE | 2019-10-11 00:30 | NUR ---
ABLE TO TAKE VITAL SIGNS BY X RAY PHYSICIAN. WILL CONTINUE TO MONITOR.
--- NOTE | 2019-10-11 02:30 | NUR ---
MADE ROUNDS. PT SLEEPING AT THIS TIME. WILL CONTINUE TO MONITOR .
--- NOTE | 2019-10-11 03:02 | NUR ---
DR. LUGO ,RESIDENT SAID NO NEED FOR THE NS IL BOLUS PREVIOUSLY ORDERED.
[2019-10-11 03:55] VITALS: BP 105/76
[2019-10-11] MEDS: DEXT 5% /NACL 0.9% 1,000 ML IV SCH ×2 (05:11→13:00)
--- NOTE | 2019-10-11 05:30 | NUR ---
BLOOD WAS DRAWN THIS AM. WILL FOLLOW UP RESULTS.
--- NOTE | 2019-10-11 06:30 | NUR ---
MADE ROUNDS. PT ASLEEP. BUT ON AND OFF CONFUSED.
--- NOTE | 2019-10-11 07:15 | NUR ---
ENDORSED PT IN STABLE CONDITION TO AM NURSE FOR CONTINUITY OF CARE.
[2019-10-11 07:17] LABS: BASOPHILS # (AUTO) 0.1 K/uL (0.00-0.22); BASOPHILS % (AUTO) 1.2 % (0.0-2.0); EOSINOPHILS % (AUTO) 0.8 % (0.0-4.0); LYMPHOCYTES # (AUTO) 0.9 K/uL (2.5-16.5); LYMPHOCYTES % (AUTO) 14.7 % (20.5-51.1); MEAN CORPUSCULAR HEMOGLOBIN 32 pg (27-31); MEAN CORPUSCULAR HGB CONC 33 g/dL (33-37); MEAN CORPUSCULAR VOLUME 96.4 fL (80-94); MONOCYTES # (AUTO) 0.8 K/uL (0.8-1.0); MONOCYTES % (AUTO) 13.9 % (1.7-9.3); NEUTROPHILS # (AUTO) 4.2 K/uL (1.8-7.7); NEUTROPHILS % (AUTO) 69.4 % (42.2-75.2); PLATELET COUNT (AUTO) 140 K/uL (140-450); RED CELL DISTRIBUTION WIDTH 16.3 % (11.6-13.7)
--- NOTE | 2019-10-11 07:20 | NUR ---
RECEIVED PATIENT FROM NIGHT NURSE. PATIENT IS SLEEPING COMFORTABLY IN BED. RESP EVEN AND UNLABORED ON ROOM AIR. NO NOTED DISTRESS AT THIS TIME. LFA 22 IVF D5NS AT 125ML NOTED. BED IN LOW POSITION, CALL LIGHT WITHIN REACH. WILL CONTINUE TO MONITOR. Addendum: 10/11/19 at 0748 by Tushar Madsen RN BILATERAL SOFT WRIST RESTRAINTS NOTED. SKIN IS INTACT.
[2019-10-11 07:27] LABS: ANION GAP 14.4 (8-16); CARBON DIOXIDE 24.8 mmol/L (21-32); CREATININE 0.5 mg/dL (0.6-1.3); POTASSIUM 3.2 mmol/L (3.5-5.1)
[2019-10-11 08:00] VITALS: BP 111/75
[2019-10-11] MEDS: MULTIVITAMIN 1 TAB PO SCH (09:50)
[2019-10-11] MEDS: THIAMINE 100 MG TAB PO SCH (09:50)
[2019-10-11] MEDS: FOLIC ACID 1 MG TAB PO SCH (09:50)
[2019-10-11] MEDS: DOCUSATE SODIUM 100 MG GELCAP PO SCH ×2 (09:50→20:30)
[2019-10-11] MEDS: chlordiazePOXIDE 25 MG CAP PO SCH ×3 (09:51→16:52)
--- NOTE | 2019-10-11 10:00 | NUR ---
MORNING ROUTINE MEDICATIONS GIVEN. PATIENT TOLERATED WELL. PATIENT SLEEPING COMFORTABLY IN BED. RESP EVEN AND UNLABORED. ORIENTED X2 NAME AND PLACE. NO NOTED DISTRESS AT THIS TIME. BILATERAL WRIST RESTRAINTS IN PLACE. CALL LIGHT WITHIN REACH. WILL CONTINUE TO MONITOR.
[2019-10-11 12:00] VITALS: BP 107/77
[2019-10-11] MEDS: LORazepam 2 MG/ML VIAL IM/IVP PRN ×3 (14:14→20:36)
--- NOTE | 2019-10-11 14:14 | NUR ---
PATIENT WAS HELPED TO THE BATHROOM PROTOCOL IN PLACE. PATIENT ASKED IF THERE ARE CHILDREN AROUND BECAUSE SHE HEARS CHILDREN PLAYING IN THE [place]. PATIENT WAS REORIENTED AND MADE AWARE THERE ARE NO CHILDREN PRESENTLY IN THE HOSPITAL. PATIENT STARTED TO GET ANXIOUS AND SHOWS MILD AGITATION. PATIENT WAS HELPED BACK TO HER BED. BILATERAL SOFT WRISTS RESTRAINTS APPLIED. PATIENT COMPLIED WITH INSTRUCTIONS. PATIENT REQUESTED FOR ATIVAN. ATIVAN GIVEN PRN ORDERED. FLUIDS GIVEN. PATIENT DENIES OF PAIN OR DISCOMFORT. RESP EVEN AND UNLABORED ON ROOM AIR. CALL LIGHT WITHIN REACH. ENCOURAGED TO USE NEEDED. PATIENT VERBALIZED UNDERSTANDING. WILL CONTINUE TO MONITOR.
[2019-10-11] MEDS: POTASSIUM CHL 20 MEQ/NACL 0.9% 1,000 ML IV SCH (15:42)
[2019-10-11 16:00] VITALS: BP 103/66
[2019-10-11] MEDS ORDERED: POTASSIUM CHLORIDE 10 MEQ TABER PO SCH (16:00)
[2019-10-11] MEDS ORDERED: SODIUM FERRIC GLUCONATE 125 MG in NACL 0.9% 100 ML IV SCH (16:00)
--- NOTE | 2019-10-11 17:18 | NUR ---
PATIENT HAS BEEN RESTING COMFORTABLY IN BED WITHOUT ANY VERBAL OUTBURSTS. PATIENT BEEN COMPLIANT WITH STAFF AND ABLE TO MAKE NEEDS KNOWN. PATIENT AGREED TO USE CALL LIGHT FOR HER NEEDS AND WILL NOT RESORT TO ANY VERBAL OR AGGRESSIVE BEHAVIORS, IF SHE WAS TO BE TAKEN OFF RESTRAINTS. PATIENT REQUESTED TO HAVE ATIVAN FOR HER ANXIETY. ATIVAN GIVEN PRN. SOFT RESTRAINTS REMOVED. CALL LIGHT WITHIN REACH. WILL CONTINUE TO MONITOR.
--- NOTE | 2019-10-11 18:20 | NUR ---
PATIENT IS SLEEPING COMFORTABLY. RESP EVEN AND UNLABORED. PATIENT DOESN'T WANT TO EAT. FLUIDS GIVEN. CALL LIGHT WITHIN REACH. WILL CONTINUE TO MONITOR.
--- NOTE | 2019-10-11 19:25 | NUR ---
ENDORSED PATIENT TO NIGHT NURSE. PATIENT IN STABLE CONDITION.
[2019-10-11 20:00] VITALS: BP 115/57
--- NOTE | 2019-10-11 20:30 | NUR ---
ASSISTED TO THE BATHROOM . UNSTEADY GAIT . VOIDED WELL. HAD A LIQUID STOOL.
[2019-10-12] MEDS: LORazepam 2 MG/ML VIAL IM/IVP PRN ×2 (00:31→04:58)
--- NOTE | 2019-10-12 00:31 | NUR ---
PT ANXIOUS. ATIVAN IVP GIVEN ORDERED. WILL CONTINUE TO MONITOR.
--- NOTE | 2019-10-12 02:00 | NUR ---
MADE ROUNDS. SLEEPING. NO S/S OF ANY DISTRESS NOTED.
--- NOTE | 2019-10-12 04:00 | NUR ---
PT VITAL SIGNS STABLE. NO C/O ANY DISCOMFORT AT THIS TIME.
[2019-10-12 04:01] VITALS: BP 120/90
[2019-10-12] MEDS: ACETAMINOPHEN 325 MG TAB PO PRN (04:57)
--- NOTE | 2019-10-12 05:00 | NUR ---
PT ASLEEP. NO S/S OF ANY DISCOMFORT NOTED.
[2019-10-12] MEDS ORDERED: HYDROcodone/APAP 5/325 MG 1 TAB TAB PO PRN (05:05)
--- NOTE | 2019-10-12 07:15 | NUR ---
ENDORSED PT IN STABLE CONDITION TO AM NURSE.
[2019-10-12] MEDS ORDERED: LIB25 PO (07:36)
[2019-10-12 08:00] VITALS: BP 102/71
--- NOTE | 2019-10-12 08:00 | NUR ---
RECEIVED REPORT FROM HANANE MARCIAL. PATIENT MORE ALERT TODAY, EXPRESSING SHE WANTS TO SLEEP AND GO HOME. INITIAL ASSESSMENT INITIATED. WITH IVF ON GOING AND INFUSING WELL. WILL CONTINUE TO MONITOR.
[2019-10-12 08:08] LABS: BASOPHILS # (AUTO) 0.1 K/uL (0.00-0.22); BASOPHILS % (AUTO) 0.7 % (0.0-2.0); EOSINOPHILS # (AUTO) 0.1 K/uL (0-0.4); EOSINOPHILS % (AUTO) 1.2 % (0.0-4.0); HEMATOCRIT 28.3 % (36-48); HEMOGLOBIN 9.2 g/dL (12.0-16.0); LYMPHOCYTES % (AUTO) 13.7 % (20.5-51.1); MEAN CORPUSCULAR HEMOGLOBIN 32 pg (27-31); MEAN CORPUSCULAR HGB CONC 33 g/dL (33-37); MEAN CORPUSCULAR VOLUME 98.7 fL (80-94); MONOCYTES # (AUTO) 0.7 K/uL (0.8-1.0); MONOCYTES % (AUTO) 10.2 % (1.7-9.3); NEUTROPHILS # (AUTO) 5.4 K/uL (1.8-7.7); NEUTROPHILS % (AUTO) 74.2 % (42.2-75.2); PLATELET COUNT (AUTO) 138 K/uL (140-450); RED BLOOD CELL COUNT(AUTO) 2.87 MIL/uL (4.20-5.40); RED CELL DISTRIBUTION WIDTH 16.3 % (11.6-13.7); WHITE BLOOD COUNT (AUTO) 7.2 K/uL (4.8-10.8)
[2019-10-12 08:19] LABS: ANION GAP 16.2 (8-16); CARBON DIOXIDE 22.5 mmol/L (21-32); CREATININE 0.5 mg/dL (0.6-1.3); POTASSIUM 3.7 mmol/L (3.5-5.1)
[2019-10-12 08:28] LABS: MAGNESIUM 1.3 mg/dL (1.8-2.4); PHOSPHORUS 1.3 mg/dL (2.5-4.9)
[2019-10-12] MEDS ORDERED: lisinopriL 5 MG TAB PO SCH (09:00)
[2019-10-12] MEDS ORDERED: carvediloL 3.125 MG TAB PO SCH (09:00)
[2019-10-12] MEDS ORDERED: ATORVASTATIN 20 MG TAB PO SCH (09:00)
--- NOTE | 2019-10-12 09:00 | NUR ---
CALLED RESIDENT REGARDING LOW MAGNESIUM AND PHOSPHOROUS LEVEL, WITH ORDER FOR REPLACEMENT.
[2019-10-12] MEDS: DOCUSATE SODIUM 100 MG GELCAP PO SCH (09:30)
[2019-10-12] MEDS: MULTIVITAMIN 1 TAB PO SCH (09:31)
[2019-10-12] MEDS: FOLIC ACID 1 MG TAB PO SCH (09:32)
[2019-10-12] MEDS: chlordiazePOXIDE 25 MG CAP PO SCH ×2 (09:34→13:14)
[2019-10-12] MEDS: THIAMINE 100 MG TAB PO SCH (09:36)
[2019-10-12] MEDS: SODIUM PHOS / POTASSIUM PHOS 1 PKT PDR PO SCH ×2 (10:00→13:14)
[2019-10-12] MEDS ORDERED: MAG SULF 2000 MG/WATER PREMIX 100 ML IV SCH (10:00)
[2019-10-12 10:16] LABS: FOLIC ACID 5.3 ng/mL (>3.0)
[2019-10-12 12:00] VITALS: BP 100/77
--- NOTE | 2019-10-12 12:11 | NUR ---
REGISTERED PUBLIC SURVEYOR NOTE: Patient's Orientation Person Situation Place Time Information Provided By PATIENT Comments SW MET WITH PATIENT AT BEDSIDE. School Inspector, Realtionship and Phone Number VIPIN FLORIAN FRIEND [phone] Healthcare Power of Cook Boat No Does Patient Have a POLST No Identifying Problems No Social Work Triggers Is A Social Work Consult Needed No Mandate Report Filed No Explanation Of Identifying Problems PATIENT IS A 34-YEAR-OLD FEMALE ADMITTED FOR PROLONGED QT INTERVAL. PATIENT HAS PMHX OF HYPOGLYCEMIA. Admitted From Home Pre-Admission Level Of Functioning Status Independent/Ambulatory Prior Resources/Services Used In Last 12 Months No Prior Resources Used Prior DME No Prior DME Used Living Situation Lives With Family House Patient Had Caregiver No Home Support No Caregiver Issues Financial Issues No Known Financial Issue Referral To The Financial Counselor Needed No Factors/Needs No D/C Needs Identified Pt/Rep Participated In Discharge Plan Yes Patient/Family Agress With Discharge Plan Yes Discharge Plan Comments TENTATIVE DISCHARGE PLAN IS FOR PATIENT TO RETURN HOME. DC Plan Status Initiated
[2019-10-12] MEDS: POTASSIUM CHL 20 MEQ/NACL 0.9% 1,000 ML IV SCH (13:15)
[2019-10-12] MEDS ORDERED: THIA-34 PO (15:15)
[2019-10-12] MEDS ORDERED: LISI-424 PO (15:15)
[2019-10-12] MEDS ORDERED: CARV3.122 PO (15:15)
[2019-10-12] MEDS ORDERED: FOLI1TAB90 PO (15:15)
[2019-10-12] MEDS ORDERED: ATOR20TA40 PO (15:15)
[2019-10-12] MEDS ORDERED: MULT-405 PO (15:15)
[2019-10-12 16:00] VITALS: BP 100/68
--- NOTE | 2019-10-12 17:03 | NUR ---
SPOKE TO THE PATIENT AND TOLD HER THAT SHE WILL BE DC TODAY SHE SAID SHE WILL CALL HER SISTER IN LAW. WILL CONTINUE TO MONITOR.
--- NOTE | 2019-10-12 17:59 | NUR ---
DISCHARGED PATIENT TO HOME VIA WHEELCHAIR, WITH DC INSTRUCTION GIVEN AND VERBALIZED UNDERSTANDING. IN STABLE CONDITION. IV AND HEART MONITOR REMOVED.
== END 2019-10-12 18:00 | disposition home or self-care (01) | DRG 282 ==
LOC: MED 08:42 → MTU 12:25
PROVIDERS: ADMIT General Practice; ATTEND General Practice
DX: K85.20 Alcohol induced acute pancreatitis without necrosis or infection (principal); I42.9 Cardiomyopathy, unspecified; E44.0 Moderate protein-calorie malnutrition; I45.81 Long QT syndrome; E83.42 Hypomagnesemia; F10.229 Alcohol dependence with intoxication, unspecified; R55 Syncope and collapse; E87.6 Hypokalemia; F41.9 Anxiety disorder, unspecified; Z68.26 Body mass index [BMI] 26.0-26.9, adult; D64.9 Anemia, unspecified; R74.0 Nonspecific elevation of levels of transaminase and lactic acid dehydrogenase [LDH]
CPT/HCPCS: 36415; 70450; 71045; 80048; 80053; 80305; 81001; 81025; 82150; 82607; 82728; 82746; 82948; 83036; 83540; 83690; 83735; 83880; 84100; 84439; 84443; 84484; 85025; 85045; 85610; 85730; 87040; 87081; 87086; 93005; 96361; 96365; 96366; 99285; A9153; J0696; J1885; J2060; J2916; J3411; J3475; J3490; J7030; J7042; J7060; Q0092

== ENCOUNTER 2021-05-05 20:01 | Emergency (ER) | payer MEDICAID ==
[~2021-05-05] VITALS: Ht 167.6 cm; Wt 58.1 kg
[~2021-05-05 20:01] MED LIST changes: +ATOR20TA40 PO; +CARV3.122 PO; +FOLI1TAB90 PO; +LIB25 PO; +LISI5TAB24 PO; -LORA-476 PO; +MULT-405 PO; +THIA-34 PO
[2021-05-05 20:55] VITALS: BP 134/95
--- NOTE | 2021-05-05 20:58 | NUR ---
TO LOBBY A/W BED AMBULATORY
[2021-05-05] MEDS ORDERED: CEFEPIME 1,000 MG in DEXTROSE 5% 50 ML IV ONE (23:25)
[2021-05-06 00:47] LABS: BASOPHILS % (AUTO) 0.2 % (0.0-2.0); EOSINOPHILS # (AUTO) 0.1 K/uL (0-0.4); EOSINOPHILS % (AUTO) 0.6 % (0.0-4.0); HEMATOCRIT 31.2 % (36-48); HEMOGLOBIN 10.8 g/dL (12.0-16.0); LYMPHOCYTES # (AUTO) 1.7 K/uL (2.5-16.5); LYMPHOCYTES % (AUTO) 18.8 % (20.5-51.1); MEAN CORPUSCULAR HEMOGLOBIN 31 pg (27-31); MEAN CORPUSCULAR HGB CONC 35 g/dL (33-37); MEAN CORPUSCULAR VOLUME 90.1 fL (80-94); MONOCYTES # (AUTO) 1.3 K/uL (0.8-1.0); MONOCYTES % (AUTO) 13.8 % (1.7-9.3); NEUTROPHILS % (AUTO) 66.6 % (42.2-75.2); PLATELET COUNT (AUTO) 106 K/uL (140-450); RED BLOOD CELL COUNT(AUTO) 3.46 MIL/uL (4.20-5.40); RED CELL DISTRIBUTION WIDTH 13.9 % (11.6-13.7); WHITE BLOOD COUNT (AUTO) 9.1 K/uL (4.8-10.8)
[2021-05-06] MEDS ORDERED: CEFEPIME 1,000 MG VIAL ONE (01:22)
[2021-05-06 01:24] LABS: ALBUMIN 3.3 g/dL (3.4-5.0); ANION GAP 11.9 (8-16); CARBON DIOXIDE 25.8 mmol/L (21-32); CREATININE 0.6 mg/dL (0.6-1.3); POTASSIUM 3.7 mmol/L (3.5-5.1)
--- NOTE | 2021-05-06 01:30 | NUR ---
35 Y/O FEMALE BIB SELF, C/O ABCESS ON RIGHT BUTTOCK. PATIENT PRESENTS TO ED WITH 10/10 PAIN FROM [facility]. PT STATES THE ABCESS HAS BEEN THERE FOR ABOUT A WEEK AND EVERY TIME SHE TRIES TO POP IT IT JUST GETS BIGGER. PT STATES THERE IS PURULO-SANGUENOUS DRAINAGE. DENIES N/V/D; SKIN IS PINK/WARM/DRY; AAOX4 WITH EVEN AND STEADY GAIT; LUNGS CLEAR BL; HR EVEN AND REGULAR; PT DENIES ANY CP, SOB, OR COUGH AT THIS TIME; PATIENT STATES PAIN OF 10/10 AT THIS TIME; VSS; PATIENT POSITIONED FOR COMFORT; HOB ELEVATED; BEDRAILS UP X1; BED DOWN. ER MD MADE AWARE OF PT STATUS. HX: LIVER CIRRHOSIS NKA MEDS: ALDAPTONE, GABAPENTIN
[2021-05-06] MEDS ORDERED: KETOROLAC 30 MG/ML VIAL IVP ONE ×2 (02:00→05:15)
[2021-05-06] MEDS ORDERED: CEPH-588 PO (04:23)
[2021-05-06] MEDS ORDERED: SULF-59 PO (04:23)
[2021-05-06] MEDS ORDERED: IBUP-2218 PO (04:23)
[2021-05-06] MEDS ORDERED: FLUC150T PO (04:23)
[2021-05-06] MEDS ORDERED: MORPHINE SULFATE 4 MG/ML SYR IVP ONE ×2 (05:15)
[2021-05-06] MEDS ORDERED: ONDANSETRON 4 MG/2 ML VIAL IVP ONE (05:15)
[2021-05-06 05:22] VITALS: BP 135/80
--- NOTE | 2021-05-06 05:22 | NUR ---
Patient discharged with v/s stable. Written and verbal after care instructions given and explained. Patient alert, oriented and verbalized understanding of instructions. Ambulatory with steady gait. All questions addressed prior to discharge. ID band removed. Patient advised to follow up with PMD. Rx KEFLEX, DIFLUCAN, IBUPROFEN, BACTRIM given. Opportunity to ask questions provided and answered.
== END 2021-05-06 05:22 | disposition home or self-care (01) ==
LOC: MED 20:01
DX: L03.317 Cellulitis of buttock (principal); F17.210 Nicotine dependence, cigarettes, uncomplicated; F41.9 Anxiety disorder, unspecified; E07.9 Disorder of thyroid, unspecified; Z79.899 Other long term (current) drug therapy; Z71.6 Tobacco abuse counseling
CPT/HCPCS: 36415; 72193; 80053; 83605; 84703; 85025; 87040; 96365; 96375; 99284; J0692; J1885; J2270; J2405; Q9967

== ENCOUNTER 2023-09-14 13:52 | Emergency (ER) | payer MEDICAID ==
[~2023-09-14] VITALS: Ht 157.5 cm; Wt 65.8 kg
[~2023-09-14 13:52] MED LIST changes: +CEPH-588 PO; +CHLO-757 PO; +IBUP-2218 PO; -LIB25 PO
[2023-09-14 14:07] VITALS: BP 133/81; PULSE 66; RESP 20; TEMP 98.2; O2SAT 99
[2023-09-14 14:48] LABS: BASOPHILS % (AUTO) 0.7 % (0.0-2.0); EOSINOPHILS # (AUTO) 0.1 K/uL (0-0.4); EOSINOPHILS % (AUTO) 2.7 % (0.0-4.0); HEMATOCRIT 38.1 % (36-48); HEMOGLOBIN 13.2 g/dL (12.0-16.0); LYMPHOCYTES # (AUTO) 1.1 K/uL (2.5-16.5); LYMPHOCYTES % (AUTO) 26.7 % (20.5-51.1); MEAN CORPUSCULAR HEMOGLOBIN 29 pg (27-31); MEAN CORPUSCULAR HGB CONC 35 g/dL (33-37); MEAN CORPUSCULAR VOLUME 84.6 fL (80-94); MONOCYTES # (AUTO) 0.4 K/uL (0.8-1.0); MONOCYTES % (AUTO) 9.4 % (1.7-9.3); NEUTROPHILS # (AUTO) 2.4 K/uL (1.8-7.7); NEUTROPHILS % (AUTO) 60.5 % (42.2-75.2); PLATELET COUNT (AUTO) 88 K/uL (140-450); RED CELL DISTRIBUTION WIDTH 12.8 % (11.6-13.7); WHITE BLOOD COUNT (AUTO) 3.9 K/uL (4.8-10.8)
[2023-09-14] MEDS: DIAZEPAM PFS 10 MG/2 ML SYR IM ONE (14:56)
[2023-09-14 15:03] LABS: ALANINE AMINOTRANSFERASE 34 U/L (12-78); ALBUMIN 3.8 g/dL (3.4-5.0); ALKALINE PHOSPHATASE 56 U/L (50-136); ANION GAP 10.8 (8-16); ASPARTATE AMINOTRANSFERASE 26 U/L (15-37); CALCIUM 9.2 mg/dL (8.5-10.1); CARBON DIOXIDE 28.6 mmol/L (21-32); CHLORIDE 99 mmol/L (98-107); CREATININE 0.9 mg/dL (0.6-1.3); GFR ARICAN-AMERICAN 89 mL/min (>90); GFR NON ARICAN-AMERICAN 74 mL/min (>90); GLUCOSE 111 mg/dL (74-106); POTASSIUM 3.4 mmol/L (3.5-5.1); SODIUM SERUM 135 mmol/L (136-145); TOTAL BILIRUBIN 0.8 mg/dL (0.0-1.0); TOTAL PROTEIN, SERUM 7.4 g/dL (6.4-8.2); UREA NITROGEN, BLOOD 18 mg/dL (7-18)
[2023-09-14] MEDS ORDERED: IBUPROFEN 600 MG TAB PO ONE (16:20)
[2023-09-14 16:42] VITALS: BP 125/77; PULSE 80; RESP 18; TEMP 97.6; O2SAT 99
== END 2023-09-14 16:41 | disposition home or self-care (01) ==
LOC: MED 13:52
DX: R07.89 Other chest pain (principal); F41.0 Panic disorder [episodic paroxysmal anxiety]; F41.9 Anxiety disorder, unspecified; Z86.39 Personal history of other endocrine, nutritional and metabolic disease; Z79.1 Long term (current) use of non-steroidal anti-inflammatories (NSAID); Z79.899 Other long term (current) drug therapy
CPT/HCPCS: 36415; 71045; 80053; 81025; 84484; 85025; 93005; 96372; 99285; J3360